=== PATIENT | male | born 1940 | race Two or more races ===

== ENCOUNTER 2019-05-04 20:21 | Emergency (ER) | payer MEDICARE, OTHER ==
[~2019-05-04] VITALS: Ht 188 cm; Wt 109.3 kg
--- NOTE | 2019-05-04 20:46 | NUR ---
PT BIBRA 860 FOR C/O FLU LIKE SYMPTOMS (WEAKNESS, H/A, N/V) X 1 WK. PT ALSO ENDORSES BEING UNCOMFORTABLE, FEELING TIRED, AND GENERALIZED BODY ACHES. PT AAOX4, NO ACUTE DISTRESS NOTED AT THIS TIME. PT CONNECTED TO THE MONITOR AND POX
[2019-05-04 21:00] LABS: BASOPHILS % (AUTO) 0.1 % (0.0-2.0); EOSINOPHILS % (AUTO) 2.2 % (0.0-6.0); HEMATOCRIT 44 % (39-51); HEMOGLOBIN 14.3 g/dL (13.5-17.5); LYMPHOCYTES # (AUTO) 0.4 /CMM (0.8-4.8); MEAN CORPUSCULAR HGB CONC 33 g/dl (31.0-36.0); MEAN CORPUSCULAR VOLUME 93 fL (80-96); MONOCYTES # (AUTO) 0.5 /CMM (0.1-1.30); MONOCYTES % (AUTO) 4.5 % (2.0-12.0); NEUTROPHILS # (AUTO) 10.8 /CMM (1.8-8.9); NEUTROPHILS % (AUTO) 90.2 % (43.0-81.0); PLATELET COUNT (AUTO) 210 /CMM (150-450)
[2019-05-04] MEDS ORDERED: IV NS 0.9% 500 ML BAG IV ONE (21:00)
[2019-05-04] MEDS ORDERED: ONDANSETRON HCL/PF 4 MG/2 ML VIAL IVP ONE (21:00)
[2019-05-04] MEDS ORDERED: ONDANSETRON HCL/PF 4 MG/2 ML VIAL ONE (21:12)
[2019-05-04 21:14] LABS: ALBUMIN 4.1 g/dL (3.4-5.0); BILIRUBIN,DIRECT 0.2 mg/dL (0.0-0.2); BILIRUBIN,TOTAL 0.9 mg/dL (0.2-1.0); CALCIUM, SERUM 9.1 mg/dL (8.5-10.1); CREATININE 1.2 mg/dL (0.6-1.3); POTASSIUM 4.1 mmol/L (3.5-5.1)
--- NOTE | 2019-05-04 22:49 | NUR ---
Patient discharged to home in stable condition. Written and verbal after care instructions given. Patient verbalizes understanding of instruction.Pt ambulatory with a steady gait. IV removed. Catheter intact and site benign. Pressure and 4x4 applied to site. No bleeding noted.
[2019-05-04 22:53] VITALS: BP 134/79
== END 2019-05-04 22:53 | disposition home or self-care (01) ==
LOC: ER 20:22
DX: K52.89 Other specified noninfective gastroenteritis and colitis (principal); E11.9 Type 2 diabetes mellitus without complications; I10 Essential (primary) hypertension
CPT/HCPCS: 36415; 80048; 80076; 83605; 85025; 87040 ×2; 87804 ×2; 96374; 99283; J2405; J7040

== ENCOUNTER 2019-08-05 16:03 | Emergency (ER) | payer MEDICARE, OTHER ==
[~2019-08-05] VITALS: Ht 185.4 cm; Wt 108.9 kg
--- NOTE | 2019-08-05 16:15 | NUR ---
BIBRA 87 FROM HOME C/O CHEST PRESSURE STARTED THIS MORNING. PATIENT A/OX4, BREATHING EVEN AND UNLABORED, DENIES CHEST PAIN AT THIS TIME. 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
[2019-08-05 17:01] LABS: BASOPHILS # (AUTO) 0.1 /CMM (0.0-0.2); BASOPHILS % (AUTO) 0.9 % (0.0-2.0); EOSINOPHILS % (AUTO) 3.8 % (0.0-6.0); HEMATOCRIT 41 % (39-51); HEMOGLOBIN 13.6 g/dL (13.5-17.5); LYMPHOCYTES # (AUTO) 1.9 /CMM (0.8-4.8); LYMPHOCYTES % (AUTO) 22.9 % (20.0-44.0); MEAN CORPUSCULAR HGB CONC 33 g/dl (31.0-36.0); MEAN CORPUSCULAR VOLUME 93 fL (80-96); MONOCYTES # (AUTO) 0.7 /CMM (0.1-1.30); MONOCYTES % (AUTO) 8.7 % (2.0-12.0); NEUTROPHILS # (AUTO) 5.2 /CMM (1.8-8.9); NEUTROPHILS % (AUTO) 63.7 % (43.0-81.0); PLATELET COUNT (AUTO) 224 /CMM (150-450); RED BLOOD CELL COUNT(AUTO) 4.39 MIL/uL (4.5-6.0); WHITE BLOOD COUNT (AUTO) 8.1 K/uL (4.3-11.0)
[2019-08-05 17:08] LABS: CALCIUM, SERUM 9.1 mg/dL (8.5-10.1); CARBON DIOXIDE 30 mmol/L (21-32); CHLORIDE 105 mmol/L (98-107); CREATININE 0.9 mg/dL (0.6-1.3); GLUCOSE 99 mg/dL (74-106); POTASSIUM 4.4 mmol/L (3.5-5.1); SODIUM SERUM 142 mmol/L (136-145); UREA NITROGEN, BLOOD 20 mg/dL (7-18)
--- NOTE | 2019-08-05 17:50 | NUR ---
PATIENT RESTING, NO DISTRESS NOTED, NEEDS ATTENDED, KEPT COMFORTABLE.
[2019-08-05] MEDS ORDERED: ASPIRIN 325 MG TABLET PO ONE (18:30)
[2019-08-05] MEDS ORDERED: MELO-105 PO (18:32)
[2019-08-05] MEDS ORDERED: CHOL100040 PO (18:32)
[2019-08-05] MEDS ORDERED: ASPIRIN 325 MG TABLET ONE (18:32)
[2019-08-05] MEDS ORDERED: ATOR10TA PO (18:32)
[2019-08-05] MEDS ORDERED: TAMS-12 PO (18:32)
[2019-08-05] MEDS ORDERED: ASPI-1169 PO (18:32)
[2019-08-05] MEDS ORDERED: ACET-868 PO (18:32)
[2019-08-05] MEDS ORDERED: OMEP20CA15 PO (18:32)
--- NOTE | 2019-08-05 19:07 | NUR ---
IV removed. Catheter intact and site benign. Pressure and 4x4 applied to site. No bleeding noted.Patient does not wish to proceed with medical care recommended by Dr. Rizzo. Patient given information related to possible complications, up to and including , which could occur as a result of leaving the hospital at this time. Patient verbalizes understanding of risks involved due to leaving against medical advice. Patient has signed AMA form.
[2019-08-05 19:08] VITALS: BP 136/69
== END 2019-08-05 19:08 | disposition left against medical advice (07) ==
LOC: ER 16:05
DX: R07.89 Other chest pain (principal); J44.9 Chronic obstructive pulmonary disease, unspecified; E11.9 Type 2 diabetes mellitus without complications; E78.5 Hyperlipidemia, unspecified; I10 Essential (primary) hypertension; Z98.890 Other specified postprocedural states; Z79.899 Other long term (current) drug therapy; Z79.82 Long term (current) use of aspirin
CPT/HCPCS: 36415; 71045-TC; 80048-TC; 84484-TC; 85025-TC

== ENCOUNTER 2021-08-28 23:17 | Emergency (ER) | payer MEDICARE, OTHER ==
[~2021-08-28] VITALS: Ht 177.8 cm; Wt 97.5 kg
[~2021-08-28 23:17] MED LIST: ACET-868 PO; ASPI-1169 PO; ATOR10TA PO; CHOL100040 PO; MELO-105 PO; OMEP20CA15 PO; TAMS-12 PO
[2021-08-28 23:26] VITALS: BP 160/70
--- NOTE | 2021-08-28 23:27 | NUR ---
Patient discharged to home in stable condition. Written and verbal after care instructions given. Patient verbalizes understanding of instruction.
== END 2021-08-28 23:28 | disposition home or self-care (01) ==
LOC: ER 23:19
DX: R53.1 Weakness (principal); I10 Essential (primary) hypertension; E11.9 Type 2 diabetes mellitus without complications; Z59.00 Homelessness unspecified; Z79.899 Other long term (current) drug therapy

== ENCOUNTER 2022-05-22 11:04 | Day surgery (SDC) | payer MEDICARE, OTHER ==
[~2022-05-22] VITALS: Ht 185.4 cm; Wt 112.5 kg
[2022-05-22] MEDS ORDERED: CT SWABBABLE VALVE TRANS SET 1 EA INFUS.SET MC ONE (14:03)
[2022-05-22] MEDS ORDERED: IV NS 0.9% 250 ML IV ONE (14:03)
[2022-05-22] MEDS ORDERED: IOHEXOL-350 100 ML VIAL IV ONE (14:03)
[2022-05-22] MEDS: METOPROLOL TARTRATE INJ 5 MG/5 ML AMPUL IVP PRN ×2 (14:10→14:15)
[2022-05-22] MEDS ORDERED: METOPROLOL TARTRATE INJ 5 MG/5 ML AMPUL ONE (14:10)
[2022-05-22 14:18] VITALS: BP 129/84
--- NOTE | 2022-05-22 14:23 | NUR ---
CTA PROCEDURE WELL TOLERATED BY THE PT. PT IS AAOX4, NOT IN RESPIRATORY DISTRESS, V/S STABLE. KEPT RESTED AND COMFORTABLE. REPORT GIVEN TO [facility] GOING BACK TO [facility].
[2022-05-22] MEDS ORDERED: NITROGLYCERIN 0.4 MG/TAB BOTTLE SL ONE (14:30)
== END 2022-05-22 14:29 | disposition short-term general hospital (02) ==
LOC: LAB 11:04 → CT 14:29
PROVIDERS: ATTEND Nurse Practitioner Acute Care
DX: I65.22 Occlusion and stenosis of left carotid artery (principal); I25.10 Atherosclerotic heart disease of native coronary artery without angina pectoris; I34.81 Nonrheumatic mitral (valve) annulus calcification; I70.0 Atherosclerosis of aorta; R07.9 Chest pain, unspecified
CPT/HCPCS: 75574; J3490; J7050; Q9967